=== PATIENT | female | born 1995 | race American Indian/Alaskan Native ===

== ENCOUNTER 2019-09-24 00:10 | Emergency (ER) | payer SELFPAY ==
[2019-09-24] MEDS ORDERED: METOCLOPRAMIDE 10 MG TAB PO ONE (05:59)
[2019-09-24] MEDS ORDERED: diphenhydrAMINE 25 MG CAP PO ONE (06:00)
--- NOTE | 2019-09-24 06:15 | Emergency Department Report ---
<KLAUDIA GENAO - Last Filed: 09/24/19 07:03> ED Headache HPI - General Chief Complaint: Headache Stated Complaint: MIGRAINE Time Seen by Provider: 09/24/19 05:59 Source: patient Exam Limitations: no limitations - History of Present Illness Initial Comments: 23-year-old female with a history of migraines presents to the ER today complaining of a flareup of her migraine. Patient states that she has had a left-sided occipital headache for the past one day. It is typical of her migraine headaches. She states usually she takes Motrin or Tylenol for her headaches, but she did not take any when he started. She states no longer takes over the counter medications for her HARVEY because at one point she was told it was affecting her liver. She is not on any prescribed meds. She reports associated photophobia, nausea and vomiting. She denies any fever, chills, neck pain, or any neuro symptoms. She also c/o intermittent lower abd cramping x 2 weeks. She states she has been having vaginal bleeding x 2 weeks. She states bleeding is sometimes heavy and sometimes its just spotting. She states she use to be on depo but she stopped in April. She states she has had menstrual cycle since she stopped depo but she does not recall when. She denies any UTI symptoms or vaginal d/c. Timing/Duration: other (1 day) Quality: moderate Head Injury Location: occipital Recent Head Trauma: no recent headache/trauma Modifying Factors: improves with: exposure to light, other Associated Symptoms: nausea/vomiting Allergies/Adverse Reactions: Allergies shellfish derived Allergy (Verified 09/24/19 00:52) Itching Home Medications: Ambulatory Orders Ibuprofen [Motrin] 800 mg PO Q8HR PRN #20 tablet 09/24/19 ED Review of Systems Constitutional: denies: chills, fever, malaise Eyes: denies: eye pain, eye discharge, vision change ENT: denies: ear pain, throat pain, congestion Respiratory: denies: cough, shortness of breath, SOB with exertion, SOB at rest, stridor Gastrointestinal: abdominal pain, nausea, vomiting Genitourinary: abnormal menses. denies: urgency, dysuria, frequency, hematuria, discharge, dyspareunia Neurological: headache. denies: weakness, numbness, paresthesias, confusion, abnormal gait, vertigo Psychiatric: denies: anxiety, depression Hematological/Lymphatic: denies: easy bleeding ED Past Medical Hx - Past Medical History Previous Medical History?: Yes Hx Headaches / Migraines: Yes - Surgical History Past Surgical History?: Yes Additional Surgical History: - Social History Smoking Status: Current Every Day Smoker Substance Use Type: Marijuana - Medications Home Medications: Home Medications Medication Instructions Recorded Confirmed Last Taken Type Ibuprofen [Motrin] 800 mg PO Q8HR PRN #20 tablet 09/24/19 Unknown Rx ED Physical Exam - General Limitations: No Limitations General appearance: alert, in no apparent distress - Head Head exam: Present: atraumatic, normocephalic - Eye Eye exam: Present: normal appearance, PERRL, EOMI Pupils: Present: normal accommodation - ENT ENT exam: Present: normal exam, normal orophraynx, mucous membranes moist - Neck Neck exam: Present: normal inspection, full ROM. Absent: meningismus - Respiratory Respiratory exam: Absent: respiratory distress - Cardiovascular Cardiovascular Exam: Present: regular rate - GI/Abdominal GI/Abdominal exam: Present: soft. Absent: distended, tenderness - Neurological Exam Neurological exam: Present: alert, oriented X3, CN II-XII intact, normal gait. Absent: motor sensory deficit - Psychiatric Psychiatric exam: Present: normal affect, normal mood - Skin Skin exam: Present: intact ED Medical Decision Making - Medical Decision Making 0703 -- Patient currently resting comfortably. She reports improvement of her HARVEY. Case discussed and turned over to Nir. Labs pending. ED Disposition Clinical Impression: Abnormal vaginal bleeding Migraine headache Qualifiers: Migraine type: chronic without aura Status migrainosus presence: without status migrainosus Intractability: not intractable Qualified Code(s): G43.709 - Chronic migraine without aura, not intractable, without status migrainosus Disposition: DC- TO HOME OR SELFCARE Condition: Stable Instructions: Migraine Headache (ED) Additional Instructions: Rest increase oral hydration. Follow up with your doctor or [facility] if no improvement or worsening symptoms. Prescriptions: Ibuprofen [Motrin] 800 mg PO Q8HR PRN #20 tablet PRN Reason: Headache Referrals: PRIMARY CARE, [Primary Care Provider] - 3-5 Days TIFFANIE MCKEON MD [Staff Physician] - 3-5 Days <JEAN MARIE ORELLANA - Last Filed: 09/24/19 08:47> ED Review of Systems ROS: Stated complaint: MIGRAINE Other details as noted in HPI ED Course Vital Signs 09/24/19 00:36 Temperature 98.8 F Pulse Rate 83 Respiratory 18 Rate Blood Pressure 100/57 O2 Sat by Pulse 99 Oximetry ED Medical Decision Making - Lab Data Result diagrams: 09/24/19 06:12 09/24/19 06:12 - Medical Decision Making Pt asleep easily aroused states her headache has improved. Speech clear oriented x 3. She reports hx of Migraines since high school. She has not seen Neurologist since high school. Labs resulted and no acute findings. Normal H/H Urine negative for . Referral for Dr Mckeon Neurology given Rx for Motrin 800 mg po given Discharge home with outpatient follow up. Critical care attestation.: If time is entered above; I have spent that time in minutes in the direct care of this critically ill patient, excluding procedure time. ED Disposition Is pt being admited?: No Does the pt Need Aspirin: No Time of Disposition: 08:47
[2019-09-24 07:16] LABS: Hemoglobin 14.2 gm/dl (10.1-14.3); Mean Corpuscular HGB Conc 33 % (30-34); Mean Corpuscular Volume 85 fl (79-97); Platelet Count 274 K/mm3 (140-440); Red Blood Count 5.07 M/mm3 (3.65-5.03); Red Cell Distribution Width 13.4 % (13.2-15.2)
[2019-09-24 07:37] LABS: Bacteria,Urine 2+ /HPF (Negative); Bilirubin,Urine NEG (Negative); Blood,Urine LG (Negative); Color,Urine Yellow (Yellow); Mucus,Urine 3+ /HPF; Protein,Urine <15 mg/dL mg/dL (Negative)
[2019-09-24 07:40] LABS: Alanine Aminotransferase 24 units/L (7-56); Albumin 4.3 g/dL (3.9-5); BUN/Creatinine Ratio 13; Blood Urea Nitrogen 9 mg/dL (7-17); Calcium 9.3 mg/dL (8.4-10.2); Hemolysis Index 15
[2019-09-24 08:27] LABS: HCG Qualitative,Urine Negative (Negative)
[2019-09-24 08:49] VITALS: BP 101/60
[2019-09-24 10:17] LABS: Total Cells Counted 100
[2019-09-24 10:18] LABS: Basophils % (Manual) 0 % (0.0-1.8); Platelet Estimate Consistent w Auto; RBC Morphology Normal
== END 2019-09-24 08:48 | disposition home or self-care (01) ==
LOC: ED 00:10
DX: G43.909 Migraine, unspecified, not intractable, without status migrainosus (principal); N93.9 Abnormal uterine and vaginal bleeding, unspecified; R10.30 Lower abdominal pain, unspecified; F17.200 Nicotine dependence, unspecified, uncomplicated
CPT/HCPCS: 36415; 80053; 81001; 81025; 85007; 85025; 99284